=== PATIENT | female | born 1965 | race African-American/Black ===

== ENCOUNTER 2017-12-16 15:44 | Emergency (ER) | payer MEDICARE, MEDICAID ==
--- NOTE | 2017-12-16 16:16 | ER Document Report ---
ED General - General Chief Complaint: Psych Problem Stated Complaint: PSYCH PROBLEM Time Seen by Provider: 12/16/17 16:04 Mode of Arrival: Ambulatory Information source: Patient, Relative Notes: Chief complaint: Medication needs to be changed History of complain:( obtained from----patient) 52 years old female with history of bipolar disorder, was seen by her psychiatrist last Tuesday and at least 2 days ago., Her chronic pain was decreased from 2 mg to 1 mg. She is not very happy about it she wanted to be increased to 2 mg. Therefore present to the ED to get the prescription. She says she is having more anxiety. Denies any suicidal ideation or homicidal or visual hallucinations. Onset: As above Duration: 2-3 days Severity: Mild Quality: None Context: As above Exacerbating factor and relieving factors: None REVIEW OF SYSTEMS: CONSTITUTIONAL : Denies fever, chills, or sweats. Denies recent illness. EENT: Denies eye, ear, throat, or mouth pain or symptoms. Denies nasal or sinus congestion or discharge. Denies throat, tongue, or mouth swelling or difficulty swallowing. CARDIOVASCULAR: Denies chest pain. Denies palpitations or racing or irregular heart beat. Denies ankle edema. RESPIRATORY: Denies cough, cold, or chest congestion. Denies shortness of breath, difficulty breathing, or wheezing. GASTROINTESTINAL: Denies distention. Denies nausea, vomiting, or diarrhea. Denies blood in vomitus, stools, or per rectum. Denies black, tarry stools. Denies constipation. GENITOURINARY: Denies difficulty urinating, painful urination, burning, frequency, blood in urine, or discharge. FEMALE GENITOURINARY: Denies vaginal bleeding, heavy or abnormal periods, irregular periods. Denies vaginal discharge or odor. MUSCULOSKELETAL: Denies back or neck pain or stiffness. Denies joint pain or swelling. SKIN: Denies rash, lesions or sores. HEMATOLOGIC : Denies easy bruising or bleeding. LYMPHATIC: Denies swollen, enlarged glands. NEUROLOGICAL: Denies confusion or altered mental status. Denies passing out or loss of consciousness. Denies dizziness or lightheadedness. Denies headache. Denies weakness or paralysis or loss of use of either side. Denies problems with gait or speech. Denies sensory loss, numbness, or tingling. Denies seizures. PSYCHIATRIC: Denies anxiety or stress. Denies depression, suicidal ideation, or homicidal ideation. ALL OTHER SYSTEMS REVIEWED AND NEGATIVE. PHYSICAL EXAMINATION: GENERAL: Well-appearing, well-nourished and in no acute distress. HEAD: Atraumatic, normocephalic. EYES: Pupils equal round and reactive to light, extraocular movements intact, conjunctiva are normal. ENT: Nares patent, oropharynx clear without exudates. Moist mucous membranes. NECK: Normal range of motion, supple without lymphadenopathy LUNGS: Breath sounds clear to auscultation bilaterally and equal. No wheezes rales or rhonchi. HEART: Regular rate and rhythm without murmurs ABDOMEN: Soft, nontender, nondistended abdomen. No guarding, no rebound. No masses appreciated. Examination of genitals-deferred Musculoskeletal: Normal range of motion, no pitting or edema. No cyanosis. NEUROLOGICAL: Cranial nerves grossly intact. Normal speech, normal gait. Normal sensory, motor exams PSYCH: Normal mood, normal affect. SKIN: Warm, Dry, normal turgor, no rashes or lesions noted. Dictation was performed using [employer] voice recognition software TRAVEL OUTSIDE OF THE [place] IN LAST 30 DAYS: No - HPI Notes: Dictated - Related Data Allergies/Adverse Reactions: bupropion [From Wellbutrin] Adverse Reaction (Verified 12/16/17 16:26) diazepam [From Valium] Adverse Reaction (Verified 12/16/17 16:26) eszopiclone [From Lunesta] Adverse Reaction (Verified 12/16/17 16:26) NSAIDS (Non-Steroidal Anti-Inflamma Adverse Reaction (Verified 12/16/17 16:26) Penicillins Adverse Reaction (Verified 12/16/17 16:26) prednisone Adverse Reaction (Verified 12/16/17 16:26) Sulfa (Sulfonamide Antibiotics) Adverse Reaction (Verified 12/16/17 16:26) zolpidem [From Ambien] Adverse Reaction (Verified 12/16/17 16:26) Past Medical History - Social History Smoking Status: Never Smoker Chew tobacco use (# tins/day): No Frequency of alcohol use: None Drug Abuse: None Lives with: Family Family History: Reviewed & Not Pertinent Patient has suicidal ideation: Yes Patient has homicidal ideation: No Renal/ Medical History: Denies: Hx Peritoneal Dialysis Psychiatric Medical History: Reports: Hx Bipolar Disorder Review of Systems - Review of Systems Notes: Dictated Physical Exam - Vital signs Vitals: Temp Pulse Resp BP Pulse Ox 98.5 F 96 18 143/73 H 100 12/16/17 16:14 12/16/17 16:14 12/16/17 16:14 12/16/17 16:14 12/16/17 16:14 - Notes Notes: Dictated Course - Vital Signs Vital signs: Temp Pulse Resp BP Pulse Ox 98.5 F 96 18 143/73 H 100 12/16/17 16:14 12/16/17 16:14 12/16/17 16:14 12/16/17 16:14 12/16/17 16:14 Discharge - Discharge Clinical Impression: Bipolar disorder Qualifiers: Active/Remission status: in partial remission Most recent bipolar episode type : mixed Qualified Code(s): F31.77 - Bipolar disorder, in partial remission, most recent episode mixed Condition: Fair Instructions: Bipolar Disorder ([facility])
[2017-12-16 16:27] VITALS: BP 143/73
== END 2017-12-16 17:10 | disposition home or self-care (01) ==
LOC: ER 15:44
DX: F31.77 Bipolar disorder, in partial remission, most recent episode mixed (principal); Z88.0 Allergy status to penicillin; Z88.2 Allergy status to sulfonamides
CPT/HCPCS: 99283